=== PATIENT | female | born 1985 | race Caucasian/White ===

== ENCOUNTER 2018-03-12 20:58 | Emergency (ER) | payer BC ==
[2018-03-12 21:10] VITALS: BP 109/72; PULSE 98; TEMP 98.5
--- NOTE | 2018-03-12 21:26 | PDOC ---
History of Present Illness - History of Present Illness Initial Comments: 03/12/18 21:30 The patient is a 32 year old female, with no significant past medical history, who presents to the emergency department with right wrist pain after falling off of her sons hoverboard this evening. She states she landed on her right wrist, right knee, right hip and head, but denies any pain aside from the right wrist pain. She denies numbness or tingling. The patient denies chest pain, shortness of breath, headache and dizziness. The patient denies fever, chills, nausea, vomit, diarrhea and constipation. The patient denies dysuria, frequency, urgency and hematuria. PAST MEDICAL HISTORY: no significant history PAST SURGICAL HISTORY: no significant history FAMILY HISTORY: no pertinent history SOCIAL HISTORY: Pt lives with family and is employed. MEDICATIONS: reviewed ALLERGIES: As per nursing notes ROS General: No fevers or chills, no weakness, no weight loss HEENT: No change in vision. No sore throat,. No ear pain CardioVascular: No chest pain or shortness of breath Respiratory:No cough, or wheezing. Gastrointestinal: no nausea, vomiting, diarrhea or constipation, No rectal bleeding Genitourinary: No dysuria, hematuria, or frequency Musculoskeletal:(+) right wrist pain. No muscle pain or swelling Neurologic: No headache, vertigo, dizziness or loss of consciousness Psychiatric: nor depression Skin: No rashes or easy bruising Endocrine: no increased thirst or abnormal weight change Allergic: no skin or latex allergy All other systems reviewed and normal PE GENERAL: The patient is awake, alert, and fully oriented, in no acute distress. HEAD: Normal with no signs of trauma. EYES: Pupils equal, round and reactive to light, extraocular movements intact, sclera anicteric, conjunctiva clear. EXTREMITIES: (+) ttp to right distal radius without deformities. NVDI. Normal range of motion, no edema. NEUROLOGICAL: Normal speech, normal gait. PSYCH: Normal mood, normal affect. SKIN: Warm, Dry, normal turgor, no rashes or lesions noted. <Miriam Ibarra - Last Filed: 03/12/18 21:30> - General History Source: Patient Exam Limitations: No Limitations - History of Present Illness Initial Comments: A portion of this note was documented by scribe services under my direction. I have reviewed the details of the note, within reason, and agree with the documentation with the following case summary and management plan written by me. Patient treated in the ED. Nursing notes are reviewed and incorporated into the medical decision-making. Vital signs reviewed. 03/12/18 22:21 Assessment plan: This is a 32-year-old female who fell on her outstretched right hand injuring it when she fell off of her sense of her board. Patient complaining of pain over the distal radius. X-ray negative for any acute fracture dislocation or pathology x-ray read by me Patient discharged home will follow-up with her primary care doctor as needed <Geoffrey Benavides I - Last Filed: 03/12/18 22:23> - General Chief Complaint: Injury Stated Complaint: RIGHT WRIST PAIN S/P FALL Time Seen by Provider: 03/12/18 21:18 Past History <Miriam Ibarra - Last Filed: 03/12/18 21:30> - Past Medical History COPD: No Psychiatric Problems: Yes (POST DEPRESSION) - Surgical History Cholecystectomy: Yes - Suicide/Smoking/Psychosocial Hx Smoking History: Never smoked Have you smoked in the past 12 months: No Information on smoking cessation initiated: No Hx Alcohol Use: (occasional) <Geoffrey Benavides I - Last Filed: 03/12/18 22:23> - Past Medical History Allergies/Adverse Reactions: Allergies Allergy/AdvReac Type Severity Reaction Status Date / Time latex Allergy Verified 03/12/18 21:01 Home Medications: Ambulatory Orders Bupropion HCl [Wellbutrin Xl] 300 mg PO DAILY 03/12/18 Sertraline HCl [Zoloft] 25 mg PO DAILY 03/12/18 *Physical Exam - Vital Signs Last Vital Signs Temp Pulse Resp BP Pulse Ox 98.5 F 98 H 18 109/72 97 03/12/18 20:58 03/12/18 20:58 03/12/18 20:58 03/12/18 20:58 03/12/18 20:58 <Miriam Ibarra - Last Filed: 03/12/18 21:30> - Vital Signs Last Vital Signs Temp Pulse Resp BP Pulse Ox 98.5 F 98 H 18 109/72 97 03/12/18 20:58 03/12/18 20:58 03/12/18 20:58 03/12/18 20:58 03/12/18 20:58 <Geoffrey Benavides I - Last Filed: 03/12/18 22:23> *DC/Admit/Observation/Transfer - Attestations Scribe Attestion: 03/12/18 21:31 Documentation prepared by Miriam Ibarra, acting as medical practice assistant for Geoffrey Benavides MD <Miriam Ibarra - Last Filed: 03/12/18 21:30> - Discharge Dispostion Decision to Admit order: No <Geoffrey Benavides I - Last Filed: 03/12/18 22:23> Diagnosis at time of Disposition: Sprain of right wrist Qualifiers: Encounter type: initial encounter Qualified Code(s): S63.501A - Unspecified sprain of right wrist, initial encounter - Discharge Dispostion Disposition: HOME Condition at time of disposition: Stable - Patient Instructions Additional Instructions: Tylenol or Motrin as needed for pain. You can purchase a wrist splint at the pharmacy and wear it as needed for additional support and comfort. Return to the emergency department immediately with ANY new, persistent or worsening symptoms. Continue any medications as previously prescribed by your physician. You should follow up with your primary doctor as soon as possible regarding today's emergency department visit. . Please make sure your doctor reviews the results of your emergency evaluation. Thank you for coming to the Emergency Department today for your care. It was a pleasure to see you today. Please note that your evaluation is INCOMPLETE until you follow-up with your doctor.
== END 2018-03-12 22:25 | disposition home or self-care (01) ==
LOC: FER 20:58
DX: S63.501A Unspecified sprain of right wrist, initial encounter (principal); V00.131A Fall from skateboard, initial encounter; Y93.51 Activity, roller skating (inline) and skateboarding; Y92.89 Other specified places as the place of occurrence of the external cause; F53.0 Postpartum depression
CPT/HCPCS: 73110-TC-RT-FY; 84703; 99282-25

== ENCOUNTER 2018-10-04 21:33 | Emergency (ER) | payer BC | END 2018-10-04 22:31 | disposition home or self-care (01) | LOC: FER 21:33 ==

== ENCOUNTER 2019-11-16 21:00 | Emergency (ER) | payer BC ==
[2019-11-16 21:09] VITALS: BP 128/75; PULSE 92; TEMP 97.8; BMI 32.5
[2019-11-16] MEDS ORDERED: ACETAMINOPHEN 500 MG TABLET (FP) PO ONE (21:31)
[2019-11-16 21:37] LABS: HCG,QUALITATIVE URINE Negative
--- NOTE | 2019-11-16 21:42 | PDOC ---
Documentation entered by Danuta Marvin SCRIBE, acting as scribe for Darcy Tyler MD. Darcy Tyler MD: This documentation has been prepared by the Yon nash Xhesika, SCRIBE, under my direction and personally reviewed by me in its entirety. I confirm that the documentation accurately reflects all work, treatment, procedures, and medical decision making performed by me. History of Present Illness - General Chief Complaint: Pain Stated Complaint: ABD, BACK PAIN History Source: Patient Exam Limitations: No Limitations - History of Present Illness Initial Comments: 11/16/19 21:07 The patient is a 34y/o F with no PMH of who presents to the ED with L sided abdo joel pain x1week. Pt describes her pain as intermittent, radiating to her back associated with dizziness, diaphoresis, nausea and the urge to vomit. Pt notes she went to Urgent Care and was told to go to the ER for further evaluation and CT scan. Pt notes she was been seeing her GI doctor for severe constipation and was recently prescribed Linzess. Pt denies any dysuria, frequency, urgency and hematuria. Denies any vaginal bleeding or vaginal discharge. Pt notes her LMP ws 10/30/19. Allergies: Latex PCP: Claudia Adams Past History - Medical History Allergies/Adverse Reactions: Allergies Allergy/AdvReac Type Severity Reaction Status Date / Time latex Allergy Verified 11/16/19 21:02 Home Medications: Ambulatory Orders Bupropion HCl [Wellbutrin Sr] 150 mg PO DAILY 11/16/19 Buspirone HCl [Buspar -] 75 mg PO BID 11/16/19 Linaclotide [Linzess] 290 mcg PO DAILY 11/16/19 Spironolactone 100 mg PO DAILY 11/16/19 COPD: No Psychiatric Problems: Yes (POST DEPRESSION) - Surgical History Cholecystectomy: Yes - Psycho-Social/Smoking History Smoking History: Never smoked Have you smoked in the past 12 months: No Review of Systems - Review of Systems Able to Perform ROS?: Yes Comments:: 11/16/19 21:08 GENERAL/CONSTITUTIONAL: No fever . No weakness.+ diaphoresis HEAD, EYES, EARS, NOSE AND THROAT: No change in vision. No ear pain or discharge. No sore throat. CARDIOVASCULAR: No chest pain or shortness of breath. RESPIRATORY: No cough, wheezing, or hemoptysis. GASTROINTESTINAL: +nausea. No vomiting, diarrhea or constipation. GENITOURINARY: No dysuria, frequency, or change in urination. MUSCULOSKELETAL: +L sided abdominal pain. No joint or muscle swelling or pain. No neck or back pain. SKIN: No rash NEUROLOGIC: +Dizziness. No headache, vertigo, loss of consciousness, or change in strength/sensation. ENDOCRINE: No increased thirst. No abnormal weight change. HEMATOLOGIC/LYMPHATIC: No anemia, easy bleeding, or history of blood clots. ALLERGIC/IMMUNOLOGIC: No hives or skin allergy. *Physical Exam - Physical Exam 11/16/19 21:40 awake alert lungs clear bilat heart rrr no mrg abd soft nt nd positive left cva tenderness. no rebound no guarding. ext wwp. nuero alert oriented x 3. pelvic exam normal appearing external exam. cervix normal, no discharge. no right adnexal tenderness. min left adnexal tenderness. no CMT. (Martin Morgan present) ED Treatment Course - LABORATORY CBC & Chemistry Diagram: 11/16/19 21:40 11/16/19 21:40 Medical Decision Making - Medical Decision Making 11/16/19 21:41 34 yo F here with c/o one week left flank pain radiating to groin, intermittent. severe at times. has urge to urinate but cant go sometimes. no f/c nausea when pain is severe, also h/o constipation. [facility] to urgent [facility], sent [facility]. does have h/o gallstones. s/p jeannine. no h/o known renal colic. also follows GI for constipation. recently started on new stool softner, no relief. differential diverticulitis, uti pyelo renal colic, constipation. plan ua labs ucg ct renal stone protocol. pain medication. 11/17/19 02:36 pt with normal flow, noted 5.8 cm cyst on the left ovary. no free fluid. plan latonya dc home with is/it project manager followup. reassessed. pt feeling better post toradol. will dc to home. Discharge - Discharge Information Problems reviewed: Yes Clinical Impression/Diagnosis: Ovarian cyst Condition: Improved Disposition: HOME - Admission No - Follow up/Referral Referrals: Claudia Garduno MD [Primary Care Provider] - - Patient Discharge Instructions Patient Printed Discharge Instructions: Ovarian Cyst Additional Instructions: Your CAT scan today shows a left-sided ovarian cyst otherwise no acute pathology. Your ultrasound today transvaginally does show a 5.8 cm left ovarian simple cyst with good venous and arterial blood flow to that ovary. Please follow-up with your coating machine operator helper you should return to the ER immediately for any worsening sudden onset of pain vomiting fevers or any concerns your cyst at 5.8 cm is at risk for torsion as we discussed in the ER which is why any sudden worsening pain should prompt repeat evaluation or evaluation by her coating machine operator helper if you take ibuprofen 600 mg every 8 hours as needed for pain - Post Discharge Activity
[2019-11-16] MEDS ORDERED: ACETAMINOPHEN 1000 MG/100 ML VIAL (NON FORMULARY) IVPB ONE (21:43)
[2019-11-16] MEDS ORDERED: ACETAMINOPHEN INJECTION 100 ML IVPB ONE (21:43)
[2019-11-16 21:47] LABS: EPITHELIAL CELLS RARE /hpf
[2019-11-16 22:05] LABS: BASO % 0.5 % (0-2.0); EOS % 1.3 % (0-4.5); HEMATOCRIT 36.3 % (32.4-45.2); HEMOGLOBIN 11.9 GM/dl (10.7-15.3); MCH 27.9 pg (25.7-33.7); MCHC 32.7 g/dl (32.0-36.0); MEAN CELL VOLUME 85.4 fl (80-96); MEAN PLT VOLUME 7.9 fl (7.5-11.1); MONO % 10.9 % (3.8-10.2); NEUT % 60.3 % (42.8-82.8); PLATELET COUNT 371 K/MM3 (134-434); RBC 4.25 M/mm3 (3.60-5.2); RDW 12.8 % (11.6-15.6)
[2019-11-16 22:06] LABS: ALBUMIN 3.9 g/dl (3.4-5.0); BILIRUBIN,TOTAL 0.1 mg/dl (0.2-1); CALCIUM 8.9 mg/dl (8.5-10); CREATININE 0.8 mg/dl (0.55-1.3); TOT PROT 6.7 g/dl (6.4-8.2)
[2019-11-16] MEDS ORDERED: ONDANSETRON 4 MG/2 ML VIAL ONE (23:56)
[2019-11-17] MEDS ORDERED: ONDANSETRON 4 MG/2 ML VIAL IVPUSH ONE (00:13)
[2019-11-17] MEDS ORDERED: KETOROLAC TROMETHAMINE 30 MG/1 ML VIAL IVPUSH ONE (00:14)
[2019-11-17] MEDS ORDERED: KETOROLAC TROMETHAMINE 30 MG/1 ML VIAL ONE (00:21)
== END 2019-11-17 02:50 | disposition home or self-care (01) ==
LOC: FER 21:00
PROC: 3E0333Z Introduction of Anti-inflammatory into Peripheral Vein, Percutaneous Approach (ICD-10-PCS; principal; 2019-11-16)
PROC: 3E033GC Introduction of Other Therapeutic Substance into Peripheral Vein, Percutaneous Approach (ICD-10-PCS; 2019-11-16)
DX: N83.209 Unspecified ovarian cyst, unspecified side (principal)
CPT/HCPCS: 36415; 74176-TC; 76830-TC; 80053; 81003; 81015; 84703; 85025; 99285-25; J0131